=== PATIENT | female | born 1980 | race Caucasian/White ===

== ENCOUNTER 2022-12-18 01:30 | Emergency (ER) | payer OTHER ==
[~2022-12-18] VITALS: Ht 154.9 cm; Wt 64.4 kg
[2022-12-18 01:35] VITALS: BP 124/70
--- NOTE | 2022-12-18 01:38 | NUR ---
to lobby a/w bed ambulatory
--- NOTE | 2022-12-18 02:09 | NUR ---
PT AMBULATES TO BED 8
--- NOTE | 2022-12-18 02:35 | NUR ---
42 Y/O F FROM HOME PRESENTS WITH PELVIC AND BILATERAL BACK PAIN 8/ WITH SOME URGENCY, DRIBBLING AND BURNING WHEN URINATING [id number]. PT STATED HER URINE HAS ODOR OF EGGS. PT IS A&OX4, SKIN INTACT, RESPIRATIONS EVEN AND UNLABORED, AMBULATORY. PMH- HYSTERECTOMY, GASTRIC SLEEVE, 4 C-SECTIONS, GALLBLADDER REMOVAL, HERNIA REPAIR ALLERGIES-NSAIDS
[2022-12-18] MEDS ORDERED: MORPHINE SULFATE 4 MG/ML SYR IM ONE (03:15)
[2022-12-18] MEDS ORDERED: ONDANSETRON 4 MG ODT PO ONE (03:15)
[2022-12-18] MEDS ORDERED: fentaNYL citrate 0.05 MG/ML VIAL IM ONE (03:35)
[2022-12-18 03:45] VITALS: BP 134/87
[2022-12-18 03:57] LABS: APPEARANCE,URINE CLEAR (CLEAR); BILIRUBIN,URINE 1+ (NEGATIVE); BLOOD, URINE NEGATIVE (NEGATIVE); COLOR,URINE ORANGE (YELLOW); LEUKOCYTE ESTERASE ,URINE TRACE (NEGATIVE); NITRITE, URINE POSITIVE (NEGATIVE); PH,URINE 6.5 (5.0-9.0); UGLUCOSE 1+ (NEGATIVE)
[2022-12-18 04:00] LABS: RBC,URINE 0-5 /HPF (0-5)
[2022-12-18 04:03] LABS: BARBITURATE, URINE NEGATIVE ng/ml (NEG <=200); BENZODIAZEPINE, URINE NEGATIVE ng/mL (NEG <=200); CANNABINOID, URINE NEGATIVE ng/mL (NEG <=50); COCAINE, URINE NEGATIVE ng/mL (NEG <=300); OPIATE, URINE NEGATIVE ng/mL (NEG <=2000); PHENCYCLIDINE SCREEN,URINE NEGATIVE ng/mL (NEG <=25)
[2022-12-18] MEDS ORDERED: ACET-8905 PO (04:54)
[2022-12-18] MEDS ORDERED: CEPH-588 PO (04:54)
--- NOTE | 2022-12-18 05:05 | NUR ---
Patient discharged with v/s stable. Written and verbal after care instructions given and explained. Patient alert, oriented and verbalized understanding of instructions. Ambulatory with steady gait. All questions addressed prior to discharge. ID band removed. Patient advised to follow up with PMD. Rx of HYDROCODONE AND KEFLEX given. Opportunity to ask questions provided and answered. DR. WALKER'S ORDERS REINFORCED
== END 2022-12-18 05:05 | disposition home or self-care (01) ==
LOC: MED 01:30
DX: N39.0 Urinary tract infection, site not specified (principal); I10 Essential (primary) hypertension; Z79.899 Other long term (current) drug therapy; Z79.2 Long term (current) use of antibiotics; Z88.6 Allergy status to analgesic agent
CPT/HCPCS: 80305; 81001; 87086; 96372; 99283; J3010; Q0162